=== PATIENT | female | born 1995 | race Caucasian/White ===

== ENCOUNTER 2021-08-13 18:41 | Inpatient (IN) | payer MEDICAID ==
[~2021-08-13] VITALS: Ht 152.4 cm; Wt 55.8 kg
[2021-08-13] MEDS ORDERED: ALBUTEROL (0.083%) 2.5MG/3ML NEB HHN STA ×2 (20:25→23:49)
[2021-08-13] MEDS ORDERED: METHYLPREDNISOLONE SOD SUCC 125 MG/2 ML VIAL IV STA (20:25)
[2021-08-13] MEDS ORDERED: IPRATROPIUM BROMIDE (0.02%) 0.5MG/2.5ML NEB HHN STA (20:25)
[2021-08-13] MEDS ORDERED: MAGNESIUM 2 G PREMIX 50 ML IV ONE (20:30)
[2021-08-14] MEDS ORDERED: SODIUM CHLORIDE 0.9% 1,000 ML IV ONE
[2021-08-14 03:55] VITALS: BP 108/63
[2021-08-14 04:00] VITALS: BP 108/63
[2021-08-14] MEDS ORDERED: IPRATROPIUM/ALBUTEROL 0.5-3(2.5)MG/3ML NEB HHN PRN ×2 (04:30)
[2021-08-14] MEDS ORDERED: METHYLPREDNISOLONE SOD SUCC 40 MG/ML VIAL IV SCH (06:00)
[2021-08-14 08:00] VITALS: BP 106/64
[2021-08-14 09:37] LABS: HEMATOCRIT. 26.4 % (36.0-48.0); HEMOGLOBIN. 8.2 g/dL (12.0-16.0); MEAN CORPUSCULAR HEMOGLOBIN 20.1 pg (28.0-32.0); MEAN CORPUSCULAR VOLUME 64.4 fL (81.0-99.0); MEAN PLATELET VOLUME 8.4 fl (7.4-10.4); PLATELET 415 x1000/uL (130-400); RED BLOOD CELL COUNT 4.09 mill/uL (4.2-5.4)
[2021-08-14 09:41] LABS: CHLORIDE 112 mEq/L (98-107)
[2021-08-14 20:21] LABS: PLATELET ESTIMATE INCREASED
== END 2021-08-14 11:28 | disposition left against medical advice (07) | DRG 141 ==
LOC: ER 18:41 → EDBEDREQ 23:54 → 6EST 08-14 01:46 → EDBEDREQTM 08-14 01:49 → EDBEDREQDT 08-14 01:49 → EDBEDREQ 08-14 01:49 → EDBEDREQSVC 08-14 01:49 → ENRESERV 08-14 02:26
PROVIDERS: ADMIT Internal Medicine; ATTEND Internal Medicine
DX: J45.901 Unspecified asthma with (acute) exacerbation (principal); R65.10 Systemic inflammatory response syndrome (SIRS) of non-infectious origin without acute organ dysfunction; Z53.29 Procedure and treatment not carried out because of patient's decision for other reasons
CPT/HCPCS: 36415; 71045; 80048; 85025; 94640; 94644; 99285; J2920; J2930; J3475; J7030

== ENCOUNTER 2021-10-06 16:21 | Emergency (ER) | payer MEDICAID ==
[~2021-10-06] VITALS: Ht 157.5 cm; Wt 64.0 kg
[2021-10-06] MEDS ORDERED: PREDNISONE 20MG TABLET PO STA (16:29)
[2021-10-06] MEDS ORDERED: IPRATROPIUM BROMIDE (0.02%) 0.5MG/2.5ML NEB HHN STA ×2 (16:29→16:38)
[2021-10-06] MEDS ORDERED: ALBUTEROL (0.083%) 2.5MG/3ML NEB HHN SCH (16:30)
[2021-10-06] MEDS ORDERED: ALBUTEROL (0.083%) 2.5MG/3ML NEB HHN STA (16:38)
[2021-10-06] MEDS ORDERED: METHYLPREDNISOLONE SOD SUCC 125 MG/2 ML VIAL IM STA (16:38)
[2021-10-06] MEDS ORDERED: ALBU90AE INH (18:38)
[2021-10-06] MEDS ORDERED: P20 MT (18:38)
[2021-10-06 19:06] VITALS: BP 128/85
== END 2021-10-06 19:07 | disposition home or self-care (01) ==
LOC: ER 16:21
DX: J45.901 Unspecified asthma with (acute) exacerbation (principal); Z98.890 Other specified postprocedural states
CPT/HCPCS: 94644; 96372; 99285; J2930; Z7610; 94640

== ENCOUNTER 2021-10-06 22:35 | Emergency (ER) | payer MEDICAID ==
[~2021-10-06] VITALS: Ht 162.6 cm; Wt 64.0 kg
[~2021-10-06 22:35] MED LIST: ALBU90AE INH; P20 MT
[2021-10-06 22:48] VITALS: BP 127/75
[2021-10-06] MEDS ORDERED: ALBUTEROL (0.083%) 2.5MG/3ML NEB HHN STA (22:51)
[2021-10-06] MEDS ORDERED: IPRATROPIUM BROMIDE (0.02%) 0.5MG/2.5ML NEB HHN STA (22:51)
[2021-10-06 23:33] LABS: CHLORIDE 111 mEq/L (98-107)
[2021-10-06 23:36] LABS: CLARITY URINE CLEAR (CLEAR); COLOR URINE YELLOW (YELLOW); KETONES URINE NEGATIVE (NEGATIVE); LEUKOCYTE ESTERASE URINE NEGATIVE (NEGATIVE); NITRITE URINE NEGATIVE (NEGATIVE); OCCULT BLOOD URINE NEGATIVE (NEGATIVE); PH URINE 5.5 (4.5-8.0); PROTEIN URINE NEGATIVE (NEGATIVE); SPECIFIC GRAVITY URINE 1.008 (1.005-1.030); UROBILINOGEN URINE 0.2 E.U./dL (0.2-1.0)
[2021-10-06 23:36] LABS: HEMATOCRIT. 38.9 % (36.0-48.0); HEMOGLOBIN. 12.8 g/dL (12.0-16.0); MEAN CORPUSCULAR HEMOGLOBIN 26.9 pg (28.0-32.0); MEAN CORPUSCULAR VOLUME 81.9 fL (81.0-99.0); MEAN PLATELET VOLUME 8.3 fl (7.4-10.4); PLATELET 244 x1000/uL (130-400); RED BLOOD CELL COUNT 4.75 mill/uL (4.2-5.4)
[2021-10-07 04:33] LABS: PLATELET ESTIMATE NORMAL
== END 2021-10-07 02:45 | disposition home or self-care (01) ==
LOC: ER 22:35
DX: O26.892 Other specified pregnancy related conditions, second trimester (principal); R10.30 Lower abdominal pain, unspecified; J45.901 Unspecified asthma with (acute) exacerbation; Z98.890 Other specified postprocedural states; Z3A.16 16 weeks gestation of pregnancy
CPT/HCPCS: 36415; 76805; 80053; 81003; 85025; 99284